=== PATIENT | female | born 1945 | race Caucasian/White ===

== ENCOUNTER → 2018-01-01 | Outpatient (CLI) | payer MEDICARE, BC | LOC: COL.RAD 07:53 | DX: R10.11 Right upper quadrant pain (principal); R11.0 Nausea | CPT/HCPCS: A9537 ==

== ENCOUNTER 2019-12-19 09:07 | Outpatient (CLI) | payer MEDICARE, BC ==
[2019-12-19] VITALS (22 sets, daily range): BP systolic 127–165; BP diastolic 65–94; PULSE 72–119
[~2019-12-19] VITALS: Ht 167.6 cm; Wt 73.8 kg
[~2019-12-19 09:07] MED LIST: CALCIUM CITRAT950 MG PO; MULTIPLE VITAMI1 CAP PO; PRIL40 PO; TYLENOL 325MG325 MG PO
--- NOTE | 2019-12-19 09:54 | NUR ---
PT BROUGHT TO CT AND POSITIONED. MONITORING EQUIPMENT PLACED AND IMAGES TAKEN/SENT
--- NOTE | 2019-12-19 12:15 | NUR ---
INT DC'D INTACT WITH PRESSURE DRESSING APPLIED. PT DRESSED HERSELF. PT TAKEN TO POV IN WHEELCHAIR AFTER NOTIFIED,
== END 2019-12-19 17:16 | disposition home or self-care (01) ==
LOC: COL.RAD 09:07
DX: R91.1 Solitary pulmonary nodule (principal)
CPT/HCPCS: 32107

== ENCOUNTER → 2020-11-03 | Outpatient (CLI) | payer MEDICARE, BC | LOC: COL.LAB 10:27 | DX: Z20.822 Contact with and (suspected) exposure to COVID-19 (principal) ==

== ENCOUNTER → 2022-07-07 | Outpatient (CLI) | payer MEDICARE, BC | LOC: COL.RAD 09:34 | DX: C34.31 Malignant neoplasm of lower lobe, right bronchus or lung (principal) | CPT/HCPCS: Q9967 ==

== ENCOUNTER → 2022-11-04 | Outpatient (CLI) | payer MEDICARE, BC | LOC: COL.RAD 09:45 | DX: C34.90 Malignant neoplasm of unspecified part of unspecified bronchus or lung (principal) | CPT/HCPCS: Q9967 ==